=== PATIENT | male | born 1995 | race Caucasian/White ===

== ENCOUNTER 2016-11-19 19:12 | Emergency (ER) | payer OTHER ==
[~2016-11-19] VITALS: Ht 177.8 cm; Wt 120.2 kg
[~2016-11-19 19:12] MED LIST: TOBRAMYCIN 5 ML5 M1 OPH
[2016-11-19 19:26] VITALS: BP 152/88
== END 2016-11-19 21:12 | disposition home or self-care (01) ==
LOC: ED 19:12
DX: S90.31XA Contusion of right foot, initial encounter (principal); M79.672 Pain in left foot; R60.0 Localized edema; W22.8XXA Striking against or struck by other objects, initial encounter; Y93.89 Activity, other specified; Y92.69 Other specified industrial and construction area as the place of occurrence of the external cause; Y99.9 Unspecified external cause status